=== PATIENT | female | born 1960 | race Caucasian/White ===

== ENCOUNTER → 2017-02-16 | Outpatient (CLI) | payer BC ==
[~2017-02-16] MED LIST: ATIVAN-DPS1 MG PO; CALCIUM600 MG PO; LOVENOX DP40 MG/0.4 SQ; MOBIC15 MG PO; MONTELUKAST SOD10 MG PO; NEXIUM40 MG PO; PERCOCET 5 DPS1 TAB PO; VITAMIN D2000 UNIT PO; ZESTRIL DPS20 MG PO; ZOLOFT DPS50 MG PO; ZYRTEC DPS10 MG PO
== END | disposition home or self-care (01) ==
LOC: RAD.S 08:50
DX: Z12.31 Encounter for screening mammogram for malignant neoplasm of breast (principal)